=== PATIENT | male | born 1950 | race Two or more races ===

== ENCOUNTER → 2020-08-01 12:09 | Outpatient (CLI) | payer OTHER | END | disposition home or self-care (01) | LOC: LAB 12:09 | PROVIDERS: ATTEND Internal Medicine Pulmonary Disease | DX: Z20.828 Contact with and (suspected) exposure to other viral communicable diseases (principal); R05 Cough; R06.02 Shortness of breath; R50.9 Fever, unspecified ==

== ENCOUNTER 2020-08-06 08:15 | Inpatient (IN) | payer OTHER ==
[~2020-08-06] VITALS: Ht 162.6 cm; Wt 72.1 kg
[2020-08-17] MEDS ORDERED: IRBESARTAN-HCT1 EAC1 PO (11:43)
[2020-08-17] MEDS ORDERED: TOPROL XL100 M1 PO (11:43)
[2020-08-17] MEDS ORDERED: DOXAZOSIN MESYLA1 MG PO (11:44)
[2020-08-17] MEDS ORDERED: AMLODIPINE-OLM1 EACH PO (11:44)
[2020-08-17] MEDS ORDERED: VITAMIN B12 PO (11:45)
[2020-08-17] MEDS ORDERED: VITAMIN C500 M6 PO (11:45)
[2020-08-24] MEDS ORDERED: VITAMIN B-121000 MC4 PO (08:05)
== END 2020-08-27 14:01 | disposition home or self-care (01) | DRG 658 ==
LOC: ADM 08:15 → EDSTATUS 08-17 08:15 → O/R 08-24 05:45 → SURG 08-24 05:45 → SURH 08-24 07:00 → SURG 08-24 14:44
PROVIDERS: ADMIT Urology; ATTEND Urology
PROC: 0TB64ZZ Excision of Right Ureter, Percutaneous Endoscopic Approach (ICD-10-PCS; 2020-08-24)
PROC: 0TT04ZZ Resection of Right Kidney, Percutaneous Endoscopic Approach (ICD-10-PCS; principal; 2020-08-24 07:00)
DX: C65.1 Malignant neoplasm of right renal pelvis (principal); Z20.828 Contact with and (suspected) exposure to other viral communicable diseases